=== PATIENT | male | born 1965 | race African-American/Black ===

== ENCOUNTER 2016-08-28 09:36 | Emergency (ER) | payer OTHER ==
--- NOTE | 2016-08-28 09:57 | ER Document Report ---
ED Medical Screen (RME) - General Chief Complaint: Eye Injury Stated Complaint: LEFT EYE PAIN/INJURY Time Seen by Provider: 08/28/16 09:56 Mode of Arrival: Ambulatory Information source: Patient Notes: This reports foreign body sensation to his left eye since yesterday while hanging insulation. He denies any visual disturbance problems with his right eye. Physical exam Minimal conjunctival injections left eye pupil 3 mm round reactive disc sharp TRAVEL OUTSIDE OF THE [place] IN LAST 30 DAYS: No Past Medical History Renal/ Medical History: Denies: Hx Peritoneal Dialysis Physical Exam - Vital signs Vitals: Temp Pulse Resp BP Pulse Ox 98.0 F 71 16 134/77 H 100 08/28/16 09:40 08/28/16 09:40 08/28/16 09:40 08/28/16 09:40 08/28/16 09:40 Course - Vital Signs Vital signs: Temp Pulse Resp BP Pulse Ox 98.0 F 71 16 134/77 H 100 08/28/16 09:40 08/28/16 09:40 08/28/16 09:40 08/28/16 09:40 08/28/16 09:40
[2016-08-28] MEDS ORDERED: DIPH/PERTUSS(ACELL)/TETANUS VAC/PF 0.5 ML SYR (>=10YO) IM ONE (11:08)
--- NOTE | 2016-08-28 11:12 | ER Document Report ---
ED Eye Complaint - General Chief Complaint: Eye Injury Stated Complaint: LEFT EYE PAIN/INJURY Time Seen by Provider: 08/28/16 09:56 Mode of Arrival: Ambulatory Information source: Patient Notes: Patient states he hit his left eye yesterday installing insulation. He states it was actually a metal pipe that came and hit the left eye. He denies any insulation into the left eye. He denies any blurry vision. He does not know his tetanus status. Patient with glasses and contacts. He denies any headache, nausea, or vomiting. TRAVEL OUTSIDE OF THE [place] IN LAST 30 DAYS: No - HPI Onset: Other - See above Eye location: Left Injury: Yes Occurred at: Outdoors Quality of pain: Achy Severity: Mild Pain Level: 1 Exposure: Other - See above Safety glasses worn: No Contact lenses worn: Yes Associated symptoms: Other - See above Past Medical History - General Information source: Patient - Social History Smoking Status: Never Smoker Chew tobacco use (# tins/day): No Frequency of alcohol use: Social Drug Abuse: None Family History: None Patient has suicidal ideation: No Patient has homicidal ideation: No Renal/ Medical History: Denies: Hx Peritoneal Dialysis Physical Exam - Vital signs Vitals: Temp Pulse Resp BP Pulse Ox 98.0 F 71 16 134/77 H 100 08/28/16 09:40 08/28/16 09:40 08/28/16 09:40 08/28/16 09:40 08/28/16 09:40 Notes: Reviewed vital signs and nursing note as charted by RN. CONSTITUTIONAL: Alert and oriented and responds appropriately to questions. Well -appearing; well-nourished HEAD: Normocephalic; atraumatic EYES: Patient has no periorbital swelling, ecchymosis, or abrasions. Full extraocular range of motion. Pupils are equal and reactive bilaterally. There is a full globe. Conjunctivae clear, sclerae non-icteric NEURO: Moves all extremities equally; Motor and sensory function intact PSYCH: The patient's mood and manner are appropriate. Grooming and personal hygiene are appropriate. Course - Re-evaluation Re-evalutation: 08/28/16 11:11 Given the above history and physical examination we will perform a visual acuity check, perform a flouroscein and allison lamp exam, slit lamp exam and reassess. Tetanus status has been updated. Given the above initial examination I believe bony fracture, globe rupture, or acute angle closure glaucoma to be extremely unlikely. I see no obvious hyphema. 08/28/16 11:25 Fluoroscein shows no uptake. Slit lamp shows no cell and flare. On slit lamp patient does appear to have a very small subconjunctival hemorrhage. Patient denies any pain with light into the eye. Given the above history and physical examination with the left eye being 20/25, I will discharge the patient home with strict return precautions, and follow-up with the vegetable canner. - Vital Signs Vital signs: Temp Pulse Resp BP Pulse Ox 98.0 F 71 16 134/77 H 100 08/28/16 09:40 08/28/16 09:40 08/28/16 09:40 08/28/16 09:40 08/28/16 09:40 Discharge - Discharge Clinical Impression: Eye trauma, superficial Qualifiers: Encounter type: initial encounter Laterality: left Qualified Code(s): S05.8X2A - Other injuries of left eye and orbit, initial encounter Condition: Good Disposition: HOME, SELF-CARE Additional Instructions: Come back immediately with any increased pain, facial swelling, blurry or double vision, or any other acute problems. Please do not worry her contacts until this issue has been completely resolved and please follow-up with ophthalmology as we have discussed. Prescriptions: Erythromycin Base [Erythromycin] 3.5 gm OP 5XD #3.5 oint..gm. Referrals: ISABELLE SPENCER DO [ACTIVE STAFF] - Follow up as needed
[2016-08-28 11:48] VITALS: BP 129/81
== END 2016-08-28 11:48 | disposition home or self-care (01) ==
LOC: ER 09:36
DX: S05.90XA Unspecified injury of unspecified eye and orbit, initial encounter (principal); W22.8XXA Striking against or struck by other objects, initial encounter; Y93.H3 Activity, building and construction; Y99.0 Civilian activity done for income or pay; Z23 Encounter for immunization
CPT/HCPCS: 90471; 90715; 99283

== ENCOUNTER 2018-05-13 10:49 | Emergency (ER) | payer OTHER ==
[2018-05-13] MEDS ORDERED: NORMAL SALINE 1000 ML 1,000 ML IV ONE (11:01)
--- NOTE | 2018-05-13 11:06 | ER Document Report ---
ED General - General Stated Complaint: BLOOD SUGAR Time Seen by Provider: 05/13/18 11:00 TRAVEL OUTSIDE OF THE [place] IN LAST 30 DAYS: No - HPI Notes: Patient is a 52-year-old male with a history of insulin-dependent diabetes, alcoholism, and hypertension who presents to the emergency department accompanied by [facility] department for elevated glucose. Patient was recently arrested and placed in nursing home over the last day or so. Patient states that he has been eating and drinking without difficulties. He is urinating normally and having normal bowel movements. Patient states that he has not been getting his insulin the last 2 days. He otherwise feels well and has no other concerns or complaints. Nursing report states that he had a blood sugar of 551 last night and he was given insulin at that time, 30 units. Nursing is reporting that he has been refusing to let the nurses check his sugars and vitals and has not been taking his medicines. They report hallucinating and being paranoid, but patient adamantly denies the above. He does not have any SI/HI. Denies drug allergies. Denies any headache, fever, neck pain, changes in vision/speech/mentation/hearing, URI, sore throat, chest pain, palpitations, syncope, cough, shortness of breath, wheeze, dyspnea, abdominal pain, nausea/vomiting/diarrhea, urinary retention, dysuria, hematuria, loss of control of bowel or bladder, numbness/tingling, saddle anesthesia, muscle paralysis/weakness, or rash. - Related Data Allergies/Adverse Reactions: No Known Allergies Allergy (Unverified 05/13/18 11:47) Past Medical History - Social History Smoking Status: Smoker,Current Status Unk Family History: None Renal/ Medical History: Denies: Hx Peritoneal Dialysis Review of Systems - Review of Systems -: Yes All other systems reviewed and negative Physical Exam - Vital signs Vitals: Temp Pulse Resp BP 97.8 F 110 H 20 128/82 H 05/13/18 11:24 05/13/18 11:24 05/13/18 11:24 05/13/18 11:24 - Notes Notes: PHYSICAL EXAMINATION: GENERAL: Well-appearing, well-nourished and in no acute distress. A&Ox4. Answers questions appropriately. Does not appear to be manic or having any hallucinations at this time. He did state that he does not like people sitting behind him which shows me some paranoia, or just irritation with the manager discovery sitting there. HEAD: Atraumatic, normocephalic. EYES: Pupils equal round and reactive to light, extraocular movements intact, sclera anicteric, conjunctiva are normal. ENT: Nares patent and without discharge. oropharynx clear without exudates. No tonsilar hypertrophy or erythema. Moist mucous membranes. NECK: Normal range of motion, supple without lymphadenopathy LUNGS: Breath sounds clear to auscultation bilaterally and equal. No wheezes rales or rhonchi. HEART: Regular rate and rhythm without murmurs, rubs, gallops. ABDOMEN: Soft, nontender, nondistended abdomen. No guarding, no rebound. No masses appreciated. Normal bowel sounds present. No CVA tenderness bilaterally. Musculoskeletal: FROM to passive/active. Strength 5+/5. Extremities: No cyanosis, clubbing, or edema b/l. Peripheral pulses 2+. Capillary refill less than 3 seconds. NEUROLOGICAL: Cranial nerves grossly intact. Normal speech, normal gait. Normal sensory, motor exams PSYCH: Normal mood, normal affect. SKIN: Warm, Dry, normal turgor, no rashes or lesions noted. Course - Re-evaluation Re-evalutation: 05/13/18 11:10 Upon my initial evaluation, patient does not appear to be hallucinating nor significantly paranoid to the extent that he is becoming violent or manic. He is able to keep a train of thought any communicate appropriately with myself. I will have our psychology team evaluate him further professional opinion. Fluids are currently being given and labs are pending. Accucheck by EMS was 324. He is non-toxic appearing and in no acute distress. 05/13/18 12:20 Patient is an afebrile, well-hydrated, 32-year-old male who presents to the emergency department with elevated blood glucose. Vitals are acceptable without significant tachycardia, tachypnea, or hypoxia. PE is otherwise unremarkable for any focal neurological deficits. GCS 15, cranial nerves grossly intact. CBC, CMP, urinalysis acceptable. Glucose is 249. Patient has received 1.5 L of fluid. He is nontoxic-appearing and is tolerating p.o. without difficulty. He was seen and evaluated by our psychology team who have cleared him from their standpoint. No further labs or imaging warranted at this time. Low suspicion for any DKA, HHS, acute intracranial pathology, sepsis, meningitis, acute abdomen, or other systemic emergent condition at this time. Patient to monitor symptoms and to seek medical attention with any other acute changes. Stressed the importance of taking his prescribed medications as directed. Recheck with a provider in 2-3 days. Return to the ED with any other worsening/concerning sym ptoms as reviewed. Patient is in agreement. - Vital Signs Vital signs: Temp Pulse Resp BP Pulse Ox 97.8 F 110 H 20 128/82 H 05/13/18 11:24 05/13/18 11:24 05/13/18 11:24 05/13/18 11:24 - Laboratory Result Diagrams: 05/13/18 11:10 05/13/18 11:10 Laboratory results interpreted by me: 05/13/18 05/13/18 05/13/18 11:10 11:10 11:10 RBC 3.52 L Hgb 10.7 L Hct 31.7 L RDW 16.6 H Sodium 136.5 L Potassium 3.2 L Glucose 249 H Total Bilirubin 2.2 H Direct Bilirubin 1.2 H AST 87 H Alkaline Phosphatase 602 H Urine Glucose (UA) >=500 H Urine Urobilinogen 4.0 H Discharge - Discharge Clinical Impression: Elevated glucose Condition: Stable Disposition: HOME, SELF-CARE Additional Instructions: Maintain adequate fluid and food intake Take home medications as directed healthy diet, low sugar/glucose/carb Monitor blood pressure daily and keep a log Monitor symptoms for any acute changes Recheck with your PCM in 2-3 days Return to the ED with any worsening symptoms and/or development of fever, headache, chest pain, palpitations, syncope, shortness of breath, trouble breathing, abdominal pain, n/v/d, blood in stool/urine, loss of control of bowel/bladder, urinary retention, muscle weakness/paralysis, numbness/tingling, or other worsening symptoms that are concerning to you. Forms: Elevated Blood Pressure
[2018-05-13 11:42] LABS: ABSOLUTE LYMPHOCYTES (AUTO) 1.4 10^3/uL (0.5-4.7); ABSOLUTE MONOCYTES (AUTO) 0.6 10^3/uL (0.1-1.4); ABSOLUTE NEUT (AUTO) 4.8 10^3/uL (1.7-8.2); BASOPHILS % (AUTO) 0.4 % (0-2); EOSINOPHILS % (AUTO) 0.1 % (0-6); HEMATOCRIT 31.7 % (37.9-51.0); HEMOGLOBIN 10.7 g/dL (13.5-17.0); MEAN CORPUSCULAR HEMOGLOBIN 30.5 pg (27.0-33.4); MEAN CORPUSCULAR HGB CONC 33.9 g/dL (32.0-36.0); MEAN CORPUSCULAR VOLUME 90 fl (80-97); MONOCYTES % (AUTO) 9.3 % (3-13); PLATELET COUNT 160 10^3/uL (150-450); RED BLOOD COUNT 3.52 10^6/uL (4.35-5.55); RED CELL DISTRIBUTION WIDTH 16.6 % (11.5-14.0); SEGMENTED NEUTROPHILS % (AUTO) 70.2 % (42-78); TOTAL CELLS COUNTED % (AUTO) 100 %; WHITE BLOOD COUNT 6.9 10^3/uL (4.0-10.5)
[2018-05-13 11:50] LABS: APPEARANCE,URINE CLEAR; BILIRUBIN,URINE NEGATIVE (NEGATIVE); COLOR,URINE YELLOW; GLUCOSE, URINE >=500 mg/dL (NEGATIVE); KETONES,URINE NEGATIVE (NEGATIVE); LEUKOCYTE ESTERASE,URINE NEGATIVE (NEGATIVE); NITRITE,URINE NEGATIVE (NEGATIVE); PROTEIN,URINE NEGATIVE (NEGATIVE); URINE SPECIFIC GRAVITY 1.029
[2018-05-13 12:04] LABS: ALANINE AMINOTRANSFERASE 61 U/L (21-72); ALBUMIN 3.7 g/dL (3.5-5.0); ALKALINE PHOSPHATASE 602 U/L (38-126); ANION GAP 11 (5-19); ASPARTATE AMINO TRANSFERASE 87 U/L (17-59); BILIRUBIN,DIRECT 1.2 mg/dL (0.0-0.4); BILIRUBIN,TOTAL 2.2 mg/dL (0.2-1.3); BLOOD UREA NITROGEN 10 mg/dL (7-20); CALCIUM 8.5 mg/dL (8.4-10.2); CARBON DIOXIDE 25 mmol/L (22-30); CHLORIDE 101 mmol/L (98-107); GLUCOSE 249 mg/dL (75-110); POTASSIUM 3.2 mmol/L (3.6-5.0); SODIUM 136.5 mmol/L (137-145); TOTAL PROTEIN 7.9 g/dL (6.3-8.2)
[2018-05-13 12:07] LABS: URINE AMPHETAMINES SCREEN NEGATIVE; URINE BARBITURATES SCREEN NEGATIVE; URINE COCAINE SCREEN NEGATIVE; URINE MARIJUANA (THC) SCREEN NEGATIVE; URINE METHADONE SCREEN NEGATIVE; URINE PHENCYCLIDINE SCREEN NEGATIVE
[2018-05-13 12:10] LABS: URINE BENZODIAZEPINES SCREEN NEGATIVE
[2018-05-13 13:15] VITALS: BP 147/94
== END 2018-05-13 12:40 | disposition home or self-care (01) ==
LOC: ER 10:49
DX: E11.65 Type 2 diabetes mellitus with hyperglycemia (principal); T38.3X6A Underdosing of insulin and oral hypoglycemic [antidiabetic] drugs, initial encounter; Z91.128 Patient's intentional underdosing of medication regimen for other reason; Y92.149 Unspecified place in prison as the place of occurrence of the external cause; Z91.14 Patient's other noncompliance with medication regimen
CPT/HCPCS: 99285; 96360; 36415; 85025; 80053; 81001; 80307; J7030

== ENCOUNTER → 2019-05-05 | Outpatient (CLI) | payer OTHER ==
--- NOTE | 2019-05-05 16:31 | RADIOLOGY REPORT (SQ) ---
EXAM DESCRIPTION: SHOULDER RIGHT 2 OR MORE VIEWS COMPLETED DATE/TIME: 05/05/2019 3:39 pm REASON FOR STUDY: RIGHT SHOULDER PAIN COMPARISON: None. NUMBER OF VIEWS: Three views. TECHNIQUE: Internal rotation, external rotation, and Y view images acquired of the right shoulder. LIMITATIONS: None. FINDINGS: MINERALIZATION: Normal. BONES: No acute fracture. No worrisome bone lesions. JOINTS: No dislocation. VISUALIZED LUNGS AND RIBS: No pneumothorax. No rib fracture. SOFT TISSUES: No radiopaque foreign body. OTHER: No other significant finding. IMPRESSION: NEGATIVE STUDY OF THE RIGHT SHOULDER. NO RADIOGRAPHIC EVIDENCE OF ACUTE INJURY. TECHNICAL DOCUMENTATION: JOB ID: [id number] [employer]- All Rights Reserved Reading location - IP/workstation name: [email or web address]
== END ==
LOC: RAD 15:14
PROVIDERS: ATTEND Nurse Practitioner Family
DX: M25.511 Pain in right shoulder (principal)